=== PATIENT | female | born 1975 | race African-American/Black ===

== ENCOUNTER → 2022-08-26 | Outpatient (CLI) | payer MEDICAID ==
[~2022-08-26] MED LIST: REGADENOSON 0.4 MG/5 ML SYRG IV ONE
[2022-08-26 09:08] VITALS: BP 143/96
== END | disposition home or self-care (01) ==
LOC: XYW 07:38 → EDSEX 07:38
PROVIDERS: ATTEND Specialist
DX: I11.0 Hypertensive heart disease with heart failure (principal); I50.9 Heart failure, unspecified; R06.02 Shortness of breath
CPT/HCPCS: 78452; 93017; A9500; J2785